=== PATIENT | female | born 1985 ===

== ENCOUNTER 2017-10-23 05:32 | Inpatient (IN) | payer OTHER ==
[~2017-10-23] VITALS: Ht 167.6 cm; Wt 80.3 kg
[~2017-10-23 05:32] MED LIST: LR(*) 1000 ML BAG 1,000 ML ONE; OXYTOCIN 30 UNIT/NS 500 ML 500 ML ONE
[2017-10-23] MEDS ORDERED: FAMOTIDINE(*) 20MG/50ML PREMIX 50 ML IVPB PRN (05:34)
[2017-10-23] MEDS ORDERED: DLR(*) 1000 ML BAG 1,000 ML IV PRN (05:34)
[2017-10-23] MEDS ORDERED: OXYTOCIN 30 UNIT/NS 500 ML 500 ML IV PRN ×2 (05:34)
[2017-10-23] MEDS ORDERED: LR(*) 1000 ML BAG 1,000 ML IV PRN (05:34)
[2017-10-23] MEDS ORDERED: METOCLOPRAMIDE 10 MG/2 ML SDV IVP PRN (05:35)
[2017-10-23] MEDS ORDERED: fentaNYL CITR 100 MCG/2 ML AMP IVP PRN ×2 (05:35)
[2017-10-23] MEDS ORDERED: LIDOCAINE 1% LOCAL 300 MG/30ML INJ PRN ×2 (05:35)
[2017-10-23] MEDS ORDERED: cefOXitin/DEX(*) 2GM/50ML PREM 50 ML IVPB PRN (05:35)
[2017-10-23] MEDS ORDERED: LIDOCAINE/SOD BICARB 8.4% SYR SC PRN (05:35)
[2017-10-23 06:17] LABS: PLATELET COUNT, AUTOMATED 248 K/uL (150-450)
[2017-10-23] MEDS ORDERED: PREN-127 PO (06:19)
[2017-10-23] MEDS ORDERED: CALC-521 PO (06:19)
[2017-10-23 06:25] VITALS: BP 133/74; Ht 167.6 cm; Wt 80.3 kg
[2017-10-23] MEDS ORDERED: FENTANYL/ROPIVACAINE 100 ML BAG EPI PRN (09:05)
[2017-10-23] MEDS ORDERED: BUPIVACAINE 0.25% MPF INJ EPI PRN (09:05)
[2017-10-23] MEDS ORDERED: ePHEDrine 25 MG/5 ML DISP.SYR IVP PRN (09:05)
[2017-10-23] MEDS ORDERED: BUPIVACAINE 0.5% INJ 30ML VIAL EPI PRN (09:05)
[2017-10-23] MEDS ORDERED: LIDOCAINE/PF 2% 200MG/10ML AMP 200 MG/10 ML AMPUL EPI PRN (09:05)
[2017-10-23] MEDS ORDERED: EPIDURAL KEYS XX PRN (09:05)
[2017-10-23] MEDS ORDERED: LIDO/EPI 2% MPF 1:200,000 20ML EPI PRN (09:05)
[2017-10-23] MEDS ORDERED: fentaNYL CITR 100 MCG/2 ML AMP IT PRN (09:05)
[2017-10-23] MEDS ORDERED: ONDANSETRON 4 MG/2 ML VIAL ONE (10:00)
--- NOTE | 2017-10-23 10:31 | History & Physical ---
History of Present Illness Age of Patient: 32 : 5 Para or TPAL: 3104 EDC per LMP: Oct 25, 2017 EDC per U/S: Oct 25, 2017 Estimated Gestational Age: 39.5 Chief Complaint Induction of Labor History of Present Illness Pt is a 32 y/o @ 39-5/7 weeks gestation who presents to L&D with a chief complaint of "scheduled IOL." Pt reports no vaginal bleeding or loss of amniotic fluid. Irregular contractions. Good movement. History Patient's Blood Type: O Positive Rubella Status: Immune Group B Strep Screen: Negative Obstetrical History: X 4 Past Medical History: Non-Contributory Allergies: Coded Allergies: No Known Drug Allergies (Unverified , 10/23/17) Social History: Denies X 3. . 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 Med Rec Home Meds Reported Medications Calcium Carbonate (TUMS) 300 Mg Tab.chew, 300 MG PO, TAB.CHEW 10/23/17 Vits W-Ca,Fe,Fa(<1MG) ( VITAMINS) 1 Each Tablet, 1 EACH PO DAILY, TAB 10/23/17 Review of Systems All Systems Reviewed/Normal: Yes, Except as Noted Constitutional: No Fever, No Weight Loss, No Weight Gain, No Chills, No Night Sweats, No Other Neurological: No Syncope, No Confusion, No Weakness, No Dizziness, No Slurred Speech, No Other Eyes: No Vision Change, No Loss of Vision, No Photophobia, No Other ENT: No Hearing Loss, No Sinus Congestion, No Sore Throat, No Ear Ache, No Tinnitus, No Other Cardiovascular: No Chest Pain, No Palpitations, No Orthostatic Hypotension, No Other Respiratory: No Shortness of Breath, No Cough, No Wheezing, No Other Gastrointestinal: No Nausea, No Vomiting, No Diarrhea, No Dysphagia, No Constipation, No Early Satiety, No Hematemesis, No Hematochezia, No Melena, No Abdominal Pain, No Other Genitourinary: No Dysuria, No Hematuria, No Urinary Incontinence, No Other Musculoskeletal: No Pain, No Sprain, No Strain, No Impaired Mobility, No Other Psychiatric: No Depression, No Anxiety, No Other Exam General Exam Vital Signs Vital Signs Date Time Temp Pulse Resp B/P (MAP) Pulse Ox O2 Delivery O2 Flow Rate FiO2 10/23/17 06:25 98.2 93 16 133/74 93 97 Room Air General Apperance: Alert/Awake/No Acute Distress Neuro: No Gross deficits Eyes: Normal Extraocular Movement & Vison, PERRLA ENT: Normal Cardiovascular: Regular Rate and Rhythm Respiratory: No Respiratory Distress Abdomen: Soft, Non-Tender, Non-Distended, Gravid - Non-Tender : Normal Musculoskeletal: No Weakness/Pain Extremities: No Cyanosis,Clubbing or Edema Integumentary: Skin Intact without Lesions or Rash Psychological: Alert & Oriented X3, Appropriate Mood & Affect Medical Decision Making Data Points Result Diagram: 10/23/17 0556 Pre-Admit Course Medical Record Review: Yes VTE Prophylasis: Adult Deep Vein Thrombosis/Pulmonary: No Assessment and Plan 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 S/p amniotomy. Pt to get epidural and expect . FRANCISCO J PRICE DO Oct 23, 2017 10:30
--- NOTE | 2017-10-23 11:24 | Anesthesia OB Pre-Anes Eval ---
History of Present Illness Anesthesia Start Date: Oct 23, 2017 Anesthesia Start Time: 09:30 OB Anesthesia Diagnosis: induction - elective EDC: Oct 23, 2017 : 5 Para: 4 Pain Ratin Result Diagram: 10/23/17 0556 Height (Inches): 66.00 Weight (Pounds): 177 BMI Calculated: 28.57 Past Medical History Medical History: no pertinent history Surgical History: no surgical history Previous Anesthesia: epidural Attended Childbirth Classes?: No Hx Anesthesia Reactions: No Hx Family Anesthesia Reaction: No Home Meds Reported Medications Calcium Carbonate (TUMS) 300 Mg Tab.chew, 300 MG PO, TAB.CHEW 10/23/17 Vits W-Ca,Fe,Fa(<1MG) ( VITAMINS) 1 Each Tablet, 1 EACH PO DAILY, TAB 10/23/17 Allergies: Coded Allergies: No Known Drug Allergies (Unverified , 10/23/17) Anesthesia OB ROS Airway Class: l GI ROS: clear liquids, ice chips Last Solids Date: Oct 22, 2017 Last Solids Time: 19:00 ASA Classification: 2 Assessment and Plan Anesthesia Plan: ISHMAEL Anesthesia Stop Day: Oct 23, 2017 Anesthesia Stop Time: 10:56 ARSENIO MENDOZA CRNA Oct 23, 2017 10:28
--- NOTE | 2017-10-23 11:24 | Procedure Note ---
Anesthetic Placement Note Anesthesia Plan: SAB Permit for Anesthesia Signed: Yes Anesthesia Technique: Patient Sitting Anesthesia Prep: Betadine Interspace: L 3-4 Local Anesthetic: 1% Lidocaine, 25 Gauge Needle Amount Local - cc's: 3 Anesthesia Needle: 25g Pencan w/Introducer Anesthesia Attempts: 4 Cerebral Spinal Fluid: Yes, Clear Anesthesia Tray: Lot Number ([id number]), Expiration Date (2018-05-15), Reference Number ([id number]) Comment: Difficult placement, no paresthesia, no heme, attempts x 2 L4-5, 2 attempts L3-4 , midline approach, good analgesia, minimal motor block R=L. Anesthesia Medications: Intrathecal Dose: mcg Fentanyl (20), mg Marcaine MPF, mg Spinal Bupivicaine (6) , Time (1000) Complications: None Comment: Zofran 4mg IVP for c/o nausea approx. 1015. ARSENIO MENDOZA CRNA Oct 23, 2017 10:34
[2017-10-23] MEDS ORDERED: ACETAMINOPHEN 325 MG TAB PO PRN (11:25)
[2017-10-23] MEDS ORDERED: BENZOCAINE 20% 60 ML BTL TP PRN (11:25)
[2017-10-23] MEDS ORDERED: MAGNESIUM HYDROXIDE* 30ML UDCP PO PRN (11:25)
[2017-10-23] MEDS ORDERED: GLYCERIN/WITCH HAZEL LEAF 1 PK TOP PRN (11:25)
[2017-10-23] MEDS ORDERED: LANOLIN OINT 7 GM TUBE TP PRN (11:25)
[2017-10-23] MEDS ORDERED: HYDROCORTISONE 2.5% CR 30GM TB PR PRN (11:25)
--- NOTE | 2017-10-23 11:31 | OB Delivery Note ---
Delivery Note Vaginal Delivery Type: Spont. Vaginal Delivery Delivery Date: Oct 23, 2017 Delivery Time: 10:56 Estimated Gestational Age(wks): 39.5 Length of Labor Stage I (hrs): 3.5 Length of Labor Stage II (hrs): 0.01 Labor Stage III (minutes): 5 Delivery Anesthesia: Epidural Sex: Female Weight (gms): 3475 (7#11oz) Marks Apgars: 1 Minute (9), 5 Minute (9) Estimated Blood Loss: 300 Delivery Complications: Other (2VC) Investigator Fraud in Attendence: FRANCISCO J Marte DO Oct 23, 2017 11:31
[2017-10-23] MEDS ORDERED: IBUPROFEN 800 MG TAB PO SCH (12:00)
[2017-10-23 18:07] VITALS: BP 117/71
[2017-10-23 19:15] VITALS: BP 134/80
[2017-10-23] MEDS: DOCUSATE CALCIUM 240 MG CAP PO SCH (20:53)
[2017-10-23] MEDS: IBUPROFEN 800 MG TAB PO SCH (21:58)
[2017-10-24 00:15] VITALS: BP 119/76
[2017-10-24] MEDS: APAP/HYDROCODONE 325/5 TAB PO PRN ×3 (00:21→10:26)
[2017-10-24 04:00] VITALS: BP 109/55
[2017-10-24] MEDS: IBUPROFEN 800 MG TAB PO SCH (06:18)
--- NOTE | 2017-10-24 07:38 | OB/GYN Progress Note ---
OB Subjective Progress Notes Subjective Doing good PPD #1. Tolerating regular diet. Voiding with out difficulty. . Ambulatory. Lochia appropriate. GI: NEG Nausea, NEG Vomiting, NEG Flatus, NEG Bowel Movement : Voiding Well, Vaginal Bleeding, Moderate Pain: Mild, Tolerating PO Pain Meds Neurological: No Headache, No Other Eyes: No Visual Disturbances OB Objective Physical Exam Vital Signs Date Time Temp Pulse Resp B/P (MAP) Pulse Ox O2 Delivery O2 Flow Rate FiO2 10/24/17 04:00 98.0 69 16 109/55 (73) 94 Room Air General Appearance: Alert/Awake/No Acute Distress Neurological: No Gross deficits Eyes: Normal Extraocular Movement & Vison, PERRLA ENT: Normal Neck: No Masses Cardiovascular: Normal Rhythm & Peripheral Pulses Respiratory: No Respiratory Distress, Clear to Auscultation Abdomen: Soft, Non-Tender, Non-Distended : Normal Musculoskeletal: No Weakness/Pain Extremities: No Cyanosis,Clubbing or Edema Integumentary: Skin Intact without Lesions or Rash Psychological: Alert & Oriented X3, Appropriate Mood & Affect Result Diagram: 10/24/17 0539 Assessment and Plan 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 Follow up in 6 weeks. FRANCISCO J PRICE DO Oct 24, 2017 07:38
[2017-10-24] MEDS ORDERED: IBUP800T37 PO (07:39)
[2017-10-24] MEDS ORDERED: LOR5/325 PO (07:39)
--- NOTE | 2017-10-24 07:41 | OB/GYN Discharge Summary ---
Discharge Summary Reason for Hosp/Final Diag: (1) 39 weeks gestation of Status: Resolved (2) Elective induction of labor planned Status: Resolved Hospital Course & Plan: Pt presented for IOL. Underwent IOL with out any difficulty or issues. See delivery note for details. Pt remained in the hospital for 1 day post and desired to be discharged. Lates Vital Signs Vital Signs Date Time Temp Pulse Resp B/P (MAP) Pulse Ox O2 Delivery O2 Flow Rate FiO2 10/24/17 04:00 98.0 69 16 109/55 (73) 94 Room Air Weight (Pounds): 177 Result Diagram: 10/24/17 0539 Condition: Improved Discharge: Home Home Meds Active Scripts Hydrocodone Bit/Acetaminophen (HYDROCODON-ACETAMINOPHEN 5-325) 1 Each Tablet, 1- 2 EACH PO Q4H Y for PAIN, #20 TAB 0 Refills Prov:FRANCISCO J PRICE DO 10/24/17 Ibuprofen (IBUPROFEN) 800 Mg Tablet, 800 MG PO Q8H@0600,1400,2200, #30 TAB 0 Refills Prov:FRANCISCO J PRICE DO 10/24/17 Reported Medications Calcium Carbonate (TUMS) 300 Mg Tab.chew, 300 MG PO, TAB.CHEW 10/23/17 Vits W-Ca,Fe,Fa(<1MG) ( VITAMINS) 1 Each Tablet, 1 EACH PO DAILY, TAB 10/23/17 [phone], Dr. Price [phone] Follow up in: 6 wks PP or PO Discharge Diet: As Tolerates, Resume Prior Admit Diet, Increase Fluid Intake Discharge Activity: Pelvic Rest FRANCISCO J PRICE DO Oct 24, 2017 07:41
[2017-10-24 08:15] VITALS: BP 123/68
[2017-10-24] MEDS: DOCUSATE CALCIUM 240 MG CAP PO SCH (09:09)
--- NOTE | 2017-10-24 10:37 | Anesthesia Post Eval Note ---
Anesthesia Post Eval Note Pt able to participate in Eval: Yes Cardiovascular Status: Satisfactory Respiratory Status: Satisfactory Pain Managment: Satisfactory PO Nausea/Vomiting: Satisfactory Temperature Management: Satisfactory Mental Status: Satisfactory, Alert, Oriented X3 Post-Op Hydration Status: Satisfactory, Tolerating PO Well, Voiding w/o Difficulty Anesthesia Type: SAB Anesthesia Tolerance: S/P SAB for labor, vaginal delivery, wilberto. well. Ambulatory without S/S PDPH, no apparent complications. ARSENIO MENDOZA PUNCH PRESS SETTER Oct 24, 2017 10:37
--- NOTE | 2017-10-24 10:57 | DELIVERY NOTE ---
DELIVERY DATE: October 23, 2017 SURGEON: Jaya Mcfarland DO ANESTHESIOLOGIST: Terrell Muniz CRNA ANESTHESIA: Epidural. PREOPERATIVE DIAGNOSES 1. 32-year-old 5, para 3-1-0-4 at 39 and 5/7 weeks gestation. 2. Induction of labor. 3. two-vessel cord. POSTOPERATIVE DIAGNOSES 1. 32-year-old 5, para 3-1-0-4 at 39 and 5/7 weeks gestation. 2. Induction of labor. 3. two-vessel cord. 4. Delivered. PROCEDURE Spontaneous vaginal delivery with intact perineum. FINDINGS Live-born female infant at 1056 of October 23, 2017 with Apgars of 9 and 9, weighing 3475 grams, 7 pounds, 11 ounces, two-vessel cord, intact perineum, intact placenta. ESTIMATED BLOOD LOSS 300 mL. PATHOLOGY None. COMPLICATIONS Known two-vessel cord. COUNTS Correct x 2 for all needles, laps, sponges and instruments. CONDITION Stable x 2, mother and infant to remain in LDRP. LABOR SUMMARY Patient is a 32-year-old 5, para 3-1-0-4 at 39 and 5/7 weeks gestation by LMP consistent with an early first-trimester sonogram. Patient presented to labor and delivery for induction of labor. Patient was noted to be 3 cm, 80 effaced, and -2 station, cephalic presentation. With this known, patient was started on oxytocin. Oxytocin was sequentially increased until labor pattern was noted to be adequate. With adequate labor pattern, patient underwent amniotomy with clear amniotic fluid. She was noted to be 4 cm at the time of amniotomy. She continued to progress, eventually requested an epidural for pain control. After epidural, she was noted to be 5 cm, and from 5 cm quickly progressed to complete, complete and +2 station. Once noted to be complete, the delivery team was called and assembled. DELIVERY SUMMARY Patient was placed in the dorsal lithotomy position, prepped and draped in the usual sterile manner. Upon maternal pushing, the 's head delivered in a controlled manner followed by the anterior shoulder with gentle downward motion , the posterior shoulder with gentle upward motion with the remainder of the infant's body delivering spontaneously. Mouth and nose were bulb suctioned. The cord was clamped x 2 and cut by the infant's grandmother. Infant was placed on maternal abdomen, where it was vigorously cleaned and dried. Cord blood gas was obtained. The placenta delivered spontaneously with gentle cord traction. Oxytocin was infused to help with uterine tone. Uterus massaged , deemed firm. Upon inspection of the perineum, vagina, cervix and labia, it was noted that there were no lacerations present. At this point, the patient was cleaned, the labor bed was reassembled, and the mother and were allowed to continue to cotto. MATTI
[2017-10-25] MEDS ORDERED: INFLUENZA VIRUS VAC 0.5 ML SYR IM ONLY ONE (09:00)
[2017-10-25] MEDS ORDERED: DIPHTH/TETANUS/ACEL. PERTUSSIS IM ONLY ONE (09:00)
[2017-10-25] MEDS ORDERED: MEASLES,MUMP,RUBELLA VAC 0.5ML SUBQ ONE (09:00)
== END 2017-10-24 12:25 | disposition home or self-care (01) | DRG 775 ==
LOC: OB 05:32
PROVIDERS: ADMIT Obstetrics & Gynecology; ATTEND Obstetrics & Gynecology
PROC: 10E0XZZ Delivery of Products of Conception, External Approach (ICD-10-PCS; principal; 2017-10-23)
PROC: 10907ZC Drainage of Amniotic Fluid, Therapeutic from Products of Conception, Via Natural or Artificial Opening (ICD-10-PCS; 2017-10-23)
PROC: 3E033VJ Introduction of Other Hormone into Peripheral Vein, Percutaneous Approach (ICD-10-PCS; 2017-10-23)
DX: O69.89X0 Labor and delivery complicated by other cord complications, not applicable or unspecified (principal); Z37.0 Single live birth; Z3A.39 39 weeks gestation of pregnancy
CPT/HCPCS: 36415; 85025; 85027; 86850; 86900; 86901; J2405; J2590; J3010; J3490; J7120

== ENCOUNTER → 2018-12-11 | Outpatient (CLI) | payer OTHER ==
[2017-10-23 06:25] VITALS: BMI 28.6
[~2018-12-11] MED LIST changes: +CALC-521 PO; +IBUP800T37 PO; +LOR5/325 PO; -LR(*) 1000 ML BAG 1,000 ML ONE; -OXYTOCIN 30 UNIT/NS 500 ML 500 ML ONE; +PREN-127 PO
[2018-12-11 11:53] LABS: PLATELET COUNT, AUTOMATED 347 K/uL (150-450)
== END ==
LOC: LAB 07:52
PROVIDERS: ATTEND Student in an Organized Health Care Education/Training Program
DX: Z34.91 Encounter for supervision of normal pregnancy, unspecified, first trimester (principal)
CPT/HCPCS: 36415; 81001; 85025; 86592; 86703; 86762; 86850; 86900; 86901; 87088; 87340; 87491; 87591

== ENCOUNTER → 2019-02-07 | Outpatient (CLI) | payer OTHER ==
[2017-10-23 06:25] VITALS: BMI 28.6
[~2019-02-07] MED LIST changes: +OMEP-218 PO
--- NOTE | 2019-02-07 11:19 | RADIOLOGY IMAGING REPORT ---
FAC[place] [facility] [place] NAME: Norma Rivera : 1985 MR: [id number] V: [id number] EXAM DATE: ORDERING PHYSICIAN: FRANCISCO J PRICE TECHNOLOGIST: Location: [facility] Patient: Norma Rivera : 1985 Visit/Account:[id number] Date of Sevice: 02/07/2019 EXAMINATION: Transabdominal OB Ultrasound >14 wks with Anatomic Survey 02/07/2019 9:22 AM History: Anatomical COMPARISON: None FINDINGS: Intrauterine gestations: one presentation: Variable heart rate: 156 bpm Amniotic fluid index: 15.7 cm Largest amniotic fluid pocket 4.5 cm Placenta: Anterior without previa. Placental cord insertion is normal. Uterus: gravid, otherwise normal Maternal adnexa: negative Cervix: closed Gestational Parameters: BPD: 4.7 cm 20 weeks 2 days HC: 17.4 cm 20 weeks 0 days AC: 15.7 cm 20 weeks 6 days FL: 3.2 cm 20 weeks 0 days Average ultrasound age (AUA): 20 weeks 2 days Estimated gestational age by LMP: 20 weeks 2 days Estimated weight (EFW): 347 grams +/- 51 grams EFW for LMP percentile: 48 Anatomic Survey: Intracranial structures, nose and lips, 4-chamber heart and outflow tracts, stomach, kidneys, urinary bladder, spine, 3-vessel cord and cord insertion are unremarkable. Two upper and two lower extremiti es visualized. IMPRESSION: 1. Single live intrauterine gestation; estimated ultrasound age 20 weeks 2 days (MATI 06/25/2019) which correlates exactly with expected clinical dates. 2. Unremarkable anatomic survey. Report Dictated By: Tohny Osorio MD at 02/07/2019 11:09 AM Report E-Signed By: Thony Osorio MD at 02/07/2019 11:15 AM WSN:[email or web address]
== END ==
LOC: US 09:19
PROVIDERS: ATTEND Student in an Organized Health Care Education/Training Program
DX: Z02.9 Encounter for administrative examinations, unspecified (principal)

== ENCOUNTER → 2019-04-03 | Outpatient (CLI) | payer OTHER ==
[2017-10-23 06:25] VITALS: BMI 28.6
[~2019-04-03] MED LIST changes: +DIPH0.5S2 IM
[2019-04-03 11:30] LABS: PLATELET COUNT, AUTOMATED 313 K/uL (150-450)
== END ==
LOC: LAB 09:34
PROVIDERS: ATTEND Student in an Organized Health Care Education/Training Program
DX: Z34.92 Encounter for supervision of normal pregnancy, unspecified, second trimester (principal)
CPT/HCPCS: 36415; 82950; 85025

== ENCOUNTER → 2019-05-30 | Outpatient (CLI) | payer OTHER ==
[2017-10-23 06:25] VITALS: BMI 28.6
== END ==
LOC: LAB 10:38
PROVIDERS: ATTEND Student in an Organized Health Care Education/Training Program
DX: Z36.85 Encounter for antenatal screening for Streptococcus B (principal); B95.1 Streptococcus, group B, as the cause of diseases classified elsewhere
CPT/HCPCS: 87077; 87081; 87186